=== PATIENT | male | born 1975 | race Hispanic/Latino ===

== ENCOUNTER 2024-03-05 15:54 | Inpatient (IN) | payer OTHER ==
[2024-03-05] MEDS ORDERED: Bupivacaine PF 0.5% 30 ML VIAL ONE (16:15)
[2024-03-05] MEDS ORDERED: fentaNYL 50 mcg/mL 1 mL Vial ONE ×3 (16:18→20:29)
[2024-03-05] MEDS ORDERED: Ondansetron PF 4 MG/2 ML Vial ONE (16:27)
[2024-03-05] MEDS ORDERED: SUGAMMADEX SODIUM 200 MG/2 ML VIAL ONE ×2 (16:27→19:48)
[2024-03-05] MEDS ORDERED: Ipratropium/Albuterol 3 ML NEB NEB PRN (16:27)
[2024-03-05] MEDS ORDERED: PROPOFOL 40 ML ONE (16:27)
[2024-03-05] MEDS ORDERED: Dexamethasone 4 mg/ml Vial ONE (16:27)
[2024-03-05] MEDS ORDERED: Lidocaine 1% PF 5 ML VIAL ONE (16:27)
[2024-03-05] MEDS ORDERED: Rocuronium Bromide 10 MG/ML (10ML VIAL) ONE ×2 (16:27→19:23)
[2024-03-05] MEDS ORDERED: Ondansetron PF 4 MG/2 ML Vial IVP PRN (16:27)
[2024-03-05] MEDS ORDERED: Promethazine HCl 25 MG/ML VIAL IM PRN (16:27)
[2024-03-05] MEDS ORDERED: Insulin Regular, Human 100 UNIT/ML 10 ML VIAL SC PRN (16:27)
[2024-03-05] MEDS ORDERED: SUCCINYLCHOLINE/SOD CL,ISO/PF 200 MG/10 ML SYRINGE FS ONE (16:28)
[2024-03-05] MEDS ORDERED: ceFOXitin 1 GM VIAL ONE (16:56)
[2024-03-05] MEDS ORDERED: Bupivacaine/Epinephrine 0.25% 30 ML VIAL ONE (16:58)
[2024-03-05] MEDS ORDERED: PHENYLEPHRINE-NS 100 MCG/ML 10 ML SYRINGE ONE (17:16)
[2024-03-05] MEDS ORDERED: Dexmedetomidine 200 MCG/2 ML VIAL ONE (17:16)
[2024-03-05] MEDS ORDERED: Albumin 5% 500 ML ONE (17:57)
[2024-03-05] MEDS ORDERED: Indocyanine Green 25 MG/10 ML VIAL ONE (18:00)
[2024-03-05] MEDS ORDERED: Ketorolac Tromethamine 30 MG (1 mL) VIAL ONE (20:38)
[2024-03-05 21:56] VITALS: BMI 30.2
[2024-03-05] MEDS: hydrALAZINE 20 MG/ML VIAL SLOW IVP PRN (22:19)
[2024-03-05] MEDS: Enoxaparin 40 MG (0.4 mL) SYRINGE SC SCH (23:05)
[2024-03-05] MEDS: Famotidine/PF 20 mg/2ml Vial SLOW IVP SCH (23:05)
[2024-03-05] MEDS: Ketorolac Tromethamine 30 MG (1 mL) VIAL IVP SCH (23:05)
[2024-03-06] MEDS: Morphine 2 MG/ML VIAL SLOW IVP PRN (04:29)
[2024-03-06] MEDS ORDERED: Famotidine/PF 20 mg/2ml Vial SLOW IVP SCH (09:00)
[2024-03-06] MEDS: Famotidine 20 MG TAB PO SCH (09:03)
[2024-03-06] MEDS: metFORMIN 500 MG TAB PO SCH (09:03)
[2024-03-06 12:40] VITALS: BP 156/75; TEMP 98.5
[2024-03-06] MEDS: FLU (Fluarix Triv) TS24-25(6MOS UP)/PF 45 MCG/0.5 ML Syringe IM ONE (12:43)
[2024-03-06] MEDS ORDERED: HYDROcodone/Acetaminophen 7.5/325 mg Tablet PO PRN (16:28)
[2024-03-06] MEDS ORDERED: Enoxaparin 40 MG (0.4 mL) SYRINGE SC SCH (21:00)
== END 2024-03-06 16:25 | disposition home or self-care (01) | DRG 328 ==
LOC: CSHSDC 15:54 → CSHTELE 16:27
PROVIDERS: ADMIT Surgery; ATTEND Surgery
PROC: 0BUT4JZ Supplement Diaphragm with Synthetic Substitute, Percutaneous Endoscopic Approach (ICD-10-PCS; principal; 2024-03-05)
PROC: 8E0W4CZ Robotic Assisted Procedure of Trunk Region, Percutaneous Endoscopic Approach (ICD-10-PCS; 2024-03-05)
DX: K44.0 Diaphragmatic hernia with obstruction, without gangrene (principal); E11.9 Type 2 diabetes mellitus without complications; Z98.890 Other specified postprocedural states; Z79.84 Long term (current) use of oral hypoglycemic drugs; Z79.899 Other long term (current) drug therapy
CPT/HCPCS: 36416; 71045; 94762; C1781; J0360; J0665; J0694; J1100; J1650; J1885; J2272; J2405; J2704; J3010; J3490; P9045; S2900